=== PATIENT | male | born 1960 | race Caucasian/White ===

== ENCOUNTER → 2018-07-21 07:54 | Outpatient (CLI) | payer OTHER, SELFPAY ==
--- NOTE | 2018-07-21 | DI.US.S_ITS ---
PROCEDURE: US ABDOMEN COMPLETE INDICATIONS: RIGHT UPPER QUADRANT ABDOMINAL PAIN TECHNIQUE: Real-time scanning was performed of the abdominal and retroperitoneal organs, with image documentation. COMPARISON: None. FINDINGS: Liver: Liver is normal in size and homogeneous in echotexture. Gallbladder: No gallstones identified. Normal gallbladder wall. No pericholecystic fluid. Negative sonographic Nayak sign. Biliary ducts: Intrahepatic bile ducts are non-dilated. Extrahepatic bile duct caliber measures 6.7 mm. Normal is 6-7 mm or less in diameter, or 10 mm or less post-cholecystectomy. Pancreas: Not well-seen. Spleen: Spleen is normal in size and homogeneous in echotexture. Kidneys: Kidneys are normal in size and echotexture. Right kidney measures 11.1 cm long; left kidney measures 11.8 cm long. No hydronephrosis or nephrolithiasis. No solid masses. Simple cyst involving the right kidney measuring 2.6 cm. Aorta: Visualized aorta is normal in caliber at less than 3 cm. Iliacs: No well-seen. IVC: Intrahepatic inferior vena cava is patent. Miscellaneous: No free abdominal fluid. IMPRESSION: Increased hepatic echogenicity noted possibly related to hepatic steatosis but other sources of hepatocellular disease cannot be excluded. Recommend clinical correlation. No source for right upper quadrant pain identified. Dictated by: sOmani SAN[place] Interpreted: Carolin Rodriguez MD on 07/21/2018 at 9:13 Approved by: Carolin Rodriguez MD, PhD on 07/21/2018 at 10:59
== END ==
PROVIDERS: PCP Family Medicine; Visit Provider Family Medicine
DX: R10.11 Right upper quadrant pain (principal)
CPT/HCPCS: 76700

== ENCOUNTER 2018-08-26 12:12 | Day surgery (SDC) | payer OTHER, SELFPAY ==
[2018-08-26 12:48] VITALS: BP 131/86; PULSE 88; RESP 16; TEMP 36.5; O2SAT 97; BMI 62.4
[2018-08-26] MEDS: SODIUM CHLORIDE 0.9% 1,000 ML 200 ML IV (12:59)
--- NOTE | 2018-08-26 13:20 | PM.HP.1 ---
History of Present Illness Date Patient Seen: 08/26/18 Time Patient Seen: 13:20 Chief complaint: [id number] SCREENING COLONOSCOPY Narrative: 58-year-old male who presents for colorectal screening. He has had no prior examination for such. On further history today he denies any recent gastrointestinal symptoms. No nausea, vomiting, loss of appetite, unexplained weight loss, abdominal pain, change in bowel habits, diarrhea, constipation, melena, hematochezia, or bright red blood per rectum. Patient History Medical History Anxiety (Acute) Depression (Acute) Gastroesophageal reflux disease (Acute) Hypertension (Acute) No significant past surgical history (Acute) Osteoarthritis (Acute) Family & Social History Family History: Reviewed 08/26/18 by Dante Vale MD Social History: household members spouse Meds Home Medications Medication Instructions Recorded Confirmed Type fluoxetine 20 mg PO DAILY 08/26/18 08/26/18 History hydrochlorothiazide 25 mg PO DAILY 08/26/18 08/26/18 History losartan 50 mg PO DAILY 08/26/18 08/26/18 History naproxen [Naprosyn] 08/26/18 History omeprazole 20 mg PO DAILY 08/26/18 08/26/18 History potassium gluconate 08/26/18 History Allergies Allergy/AdvReac Type Severity Reaction Status Date / Time naproxen [From Aleve] Allergy Intermediate Irritable Verified 08/26/18 12:42 Review of Systems Review of Systems All systems reviewed & are unremarkable except as noted in HPI and below Exam Vital Signs (past 8 hours): - 08/26/18 12:48 Temperature 97.7 F Pulse Rate 88 Respiratory Rate 16 Blood Pressure 131/86 Pulse Oximetry 97 Oxygen Delivery Method Room Air Narrative Exam Narrative: Well-nourished well-developed male in no acute distress. Alert oriented x3. Sclera nonicteric Regular rate and rhythm. No wheezes. Abdomen soft, nondistended, nontender, no masses Extremities show no clubbing or cyanosis Objective Labs Labs: No recent laboratory or radiographic studies review Assessment & Plan Plan: Assessment/Plan Narrative: 58-year-old male requiring colorectal screening by age criteria. Colonoscopy is currently recommended. Technical details of the procedure were explained. Risks, benefits, alternatives were discussed. Risks including but not limited to sedation, aspiration, bleeding, pain, missed lesion, incomplete examination, need for further radiographic studies, colonic perforation, need for major abdominal surgery, and all attendant risks of major surgery were discussed at length. All questions were answered to his satisfaction, and he voiced understanding. Consent was placed on the chart. We will proceed as above.
--- NOTE | 2018-08-26 13:24 | PM.PREOP ---
Pre-operative Note Interval Note History & Physical reviewed/Exam performed by Physician: Yes Changes to H&P: No H&P completed within 30 days and has changed as indicated here:: Patient seen and examined in the preoperative area. History and physical examination dictated and placed on the chart. Obviously no changes in the last 10 min. Proceed with colonoscopy today as planned. ASA Class (for procedural sedation): II
[2018-08-26] MEDS: MIDAZOLAM 5 MG/5 ML VIAL IV (13:33)
[2018-08-26] MEDS: fentaNYL 250 MCG/5 ML INJ IV (13:33)
--- NOTE | 2018-08-26 13:46 | PM.OP.ENDO ---
Operative Date/Time/Diagnoses Date of procedure: 08/26/18 Time of procedure: 13:46 Pre-op diagnosis: Colorectal screening Post-op diagnosis: other (Diverticulosis but otherwise normal colon and rectum) Procedure & Clinicians Study performed: 1. Sedation per surgeon 2. Colonoscopy Same procedure as scheduled: Yes Indications: 58-year-old male requiring colorectal screening by age criteria. Colonoscopy is recommended. Surgeon: Dante Vale Procedure Notes SCOAP/Timeout: Yes Procedure in detail: After obtaining informed consent, the patient was brought to the GI suite and placed in the left lateral decubitus position on the examination table. After placement of appropriate monitors, the patient was given incremental doses of Versed and Fentanyl until an appropriate level of sedation was achieved. A time out was held per SCOAP protocol. A digital rectal examination was performed and did not reveal any masses or obstructing lesions. The colonoscope was gently passed into the patient's anus and the entire colon navigated to the level of the cecum with minimal difficulty. Once in the cecum, the scope was withdrawn being sure to go before and beyond all mucosal folds and prominences and get an excellent examination. The findings are noted above. At the level of the rectal vault, the scope was retroflexed and the internal anal canal was examined. The scope was straightened and air aspirated from the colon. The instrument was removed from the patient's body and the procedure was concluded. The patient was allowed to awaken from sedation without difficulty and taken to the post-anesthesia care unit in good condition. Scope withdrawal time: 7:13 min Sedation minutes: 16 Findings: diverticulosis and other findings (Otherwise normal colon and rectum) Specimen(s): none sent Complications: none Recommendations: Colonscopy in 10 years and High fiber diet Plan for aftercare: 1. Discharge home Follow up: as needed Disposition: PACU
[2018-08-26 13:50] VITALS: BP 114/69; PULSE 70; RESP 15; TEMP 36.5; O2SAT 94
== END 2018-08-26 14:16 | disposition home or self-care (01) ==
PROVIDERS: PCP Family Medicine; Visit Provider Surgery
PROC: 0DJD8ZZ Inspection of Lower Intestinal Tract, Via Natural or Artificial Opening Endoscopic (ICD-10-PCS; CPT 45378; principal; 2018-08-26 14:00)
DX: Z12.11 Encounter for screening for malignant neoplasm of colon (principal); K57.30 Diverticulosis of large intestine without perforation or abscess without bleeding; F41.9 Anxiety disorder, unspecified; I10 Essential (primary) hypertension
CPT/HCPCS: 45378; 99152; J2250; J3010

== ENCOUNTER → 2019-05-26 09:44 | Outpatient (CLI) | payer OTHER, SELFPAY ==
--- NOTE | 2019-05-26 | DI.RAD.S_ITS ---
PROCEDURE: XR ELBOW RT MIN 3V INDICATIONS: BI ELBOW PAIN 3 VIEW TECHNIQUE: 3 views of the elbow were acquired. COMPARISON: None. FINDINGS: Bones: No fractures or dislocations. No suspicious bony lesions. Elbow joint degeneration, with bulky osteophyte formation Soft tissues: No elbow joint effusion. No suspicious soft tissue calcifications. IMPRESSION: Elbow joint degeneration. No fracture. If the patient's pain or other symptoms persist, consider further evaluation with MRI Dictated by: Pietro Kumar M.D. on 05/26/2019 at 10:08 Approved by: Pietro Kumar M.D. on 05/26/2019 at 10:13
--- NOTE | 2019-05-26 | DI.RAD.S_ITS ---
PROCEDURE: XR ELBOW LT MIN 3V INDICATIONS: BI ELBOW PAIN 3 VIEW TECHNIQUE: 3 views of the elbow were acquired. COMPARISON: None. FINDINGS: Bones: No fractures or dislocations. No suspicious bony lesions. Joint degeneration with spurring. Soft tissues: No elbow joint effusion. No suspicious soft tissue calcifications. IMPRESSION: Mild left elbow joint degeneration Dictated by: Pietro Kumar M.D. on 05/26/2019 at 11:07 Approved by: Pietro Kumar M.D. on 05/26/2019 at 11:12
== END ==
PROVIDERS: PCP Student in an Organized Health Care Education/Training Program; Visit Provider Student in an Organized Health Care Education/Training Program
DX: M25.522 Pain in left elbow (principal); M25.521 Pain in right elbow; M19.022 Primary osteoarthritis, left elbow; M19.021 Primary osteoarthritis, right elbow
CPT/HCPCS: 73080

== ENCOUNTER → 2020-09-19 10:25 | Outpatient (CLI) | payer OTHER, SELFPAY ==
--- NOTE | 2020-09-19 | DI.RAD.S_ITS ---
PROCEDURE: XR SHOULDER RT MIN 2V INDICATIONS: RIGHT SHOULDER PAIN TECHNIQUE: 3 views of the shoulder were acquired. COMPARISON: None. FINDINGS: Bones: No fractures or dislocations. No suspicious bony lesions. Visualized ribs appear intact. Soft tissues: No suspicious soft tissue calcifications. IMPRESSION: [id number] AC joint osteoarthritis, without trauma. Dictated by: Patrick Watkins M.D. on 09/19/2020 at 11:00 Approved by: Patrick Watkins M.D. on 09/19/2020 at 11:00
== END ==
PROVIDERS: PCP Internal Medicine; Referring Provider Internal Medicine; Visit Provider Internal Medicine
DX: S49.91XA Unspecified injury of right shoulder and upper arm, initial encounter (principal); M25.511 Pain in right shoulder; M19.011 Primary osteoarthritis, right shoulder; X58.XXXA Exposure to other specified factors, initial encounter
CPT/HCPCS: 73030

== ENCOUNTER → 2023-10-08 12:08 | Outpatient (CLI) | payer OTHER, SELFPAY ==
--- NOTE | 2023-10-08 12:15 | DI.RAD.S_ITS ---
PROCEDURE: XR KNEE LT 3V INDICATIONS: polyarthralgia TECHNIQUE: 3 views of the knee were acquired. COMPARISON: None. FINDINGS: Bones: No fractures or dislocations. No patellar subluxation. Mild tricompartmental osteoarthritis is seen with joint space narrowing and subchondral sclerosis. No suspicious bony lesions. Soft tissues: No joint effusion. No suspicious soft tissue calcifications. IMPRESSION: No left knee fracture or dislocation. Mild tricompartmental osteoarthritis. No joint effusion. Dictated by: Slava Akins M.D. on 10/08/2023 at 15:53 Approved by: Slava Akins M.D. on 10/08/2023 at 15:53
--- NOTE | 2023-10-08 12:16 | DI.RAD.S_ITS ---
PROCEDURE: XR KNEE RT 3V INDICATIONS: polyarthralgia TECHNIQUE: 3 views of the knee were acquired. COMPARISON: None. FINDINGS: Bones: No fractures or dislocations. Mild tricompartmental osteoarthritis is seen more notably in medial femoral tibial compartment. No suspicious bony lesions. Soft tissues: Small suprapatellar joint effusion is seen. No suspicious soft tissue calcifications. IMPRESSION: No right knee fracture or dislocation. Mild tricompartmental osteoarthritis and small joint effusion. Dictated by: Slava Akins M.D. on 10/08/2023 at 15:53 Approved by: Slava Akins M.D. on 10/08/2023 at 15:59
--- NOTE | 2023-10-08 12:16 | DI.RAD.S_ITS ---
PROCEDURE: XR HAND LT MIN 3V INDICATIONS: polyarthralgia TECHNIQUE: 3 views of the hand(s) acquired. COMPARISON: None. FINDINGS: Bones: No fractures or dislocations. Carpal bones are normally aligned. Osteoarthritic changes are noted throughout left hand and wrist joints. Subtle radiolucency involving ulnar aspect of 3rd metacarpal head and adjacent 3rd proximal phalangeal base is seen. No suspicious bony lesions. Soft tissues: No suspicious soft tissue calcifications. IMPRESSION: No fracture or dislocation. Mild left hand and wrist joint osteoarthritis. Radiolucency involving ulnar aspect of 3rd MCP joint, which may represent subtle erosion versus subcortical cysts. No gross soft tissue abnormalities. Dictated by: Slava Akins M.D. on 10/08/2023 at 16:15 Approved by: Slava Akins M.D. on 10/08/2023 at 16:16
--- NOTE | 2023-10-08 12:16 | DI.RAD.S_ITS ---
PROCEDURE: XR SHOULDER RT MIN 2V INDICATIONS: polyarthralgia TECHNIQUE: 3 views of the shoulder were acquired. COMPARISON: [facility], CR, XR SHOULDER RT MIN 2V, 09/19/2020, 10:31. FINDINGS: Bones: No fractures or dislocations. Moderate acromioclavicular joint space narrowing and juxta-articular osteophytosis. Coracoclavicular interval is maintained. Normal glenohumeral alignment. No suspicious bony lesions. Visualized ribs appear intact. Soft tissues: No suspicious soft tissue calcifications. Visualized right lung is clear. IMPRESSION: 1. No acute bony abnormality. 2. Moderate right acromioclavicular joint osteoarthritis. Dictated by: Mango Barbosa M.D. on 10/08/2023 at 17:09 Approved by: Mango Barbosa M.D. on 10/08/2023 at 17:10
--- NOTE | 2023-10-08 12:16 | DI.RAD.S_ITS ---
PROCEDURE: XR HIP W PEL IF DONE RT 2V INDICATIONS: polyarthralgia TECHNIQUE: AP pelvis with lateral view(s) of the right hip(s). COMPARISON: None. FINDINGS: Bones: No fractures or dislocations. [id number] bilateral hip joint osteoarthritic changes are seen with superior joint space narrowing, subchondral sclerosis and small marginal osteophyte formation. No evidence of avascular necrosis of femoral head. Pelvic ring appears intact. No suspicious bony lesions. Soft tissues: The visualized bowel gas pattern is normal. No suspicious soft tissue calcifications. IMPRESSION: [id number] bilateral hip joint osteoarthritis. No pelvic or hip fracture. No evidence of avascular necrosis. Dictated by: Slava Akins M.D. on 10/08/2023 at 16:00 Approved by: Slava Akins M.D. on 10/08/2023 at 16:00
--- NOTE | 2023-10-08 12:16 | DI.RAD.S_ITS ---
PROCEDURE: XR SHOULDER LT MIN 2V INDICATIONS: polyarthralgia TECHNIQUE: 3 views of the shoulder were acquired. COMPARISON: [facility], CR, XR SHOULDER RT MIN 2V, 09/19/2020, 10:31. FINDINGS: Bones: No fractures or dislocations. Moderate acromioclavicular joint space narrowing and juxta-articular osteophytosis. Normal glenohumeral alignment. Coracoclavicular interval is maintained. No suspicious bony lesions. Visualized ribs appear intact. Soft tissues: No suspicious soft tissue calcifications. Visualized left lung is clear. IMPRESSION: 1. No acute bony abnormality. 2. Moderate acromioclavicular joint osteoarthritis. Dictated by: Mango Barbosa M.D. on 10/08/2023 at 14:34 Approved by: Mango Barbosa M.D. on 10/08/2023 at 14:35
== END ==
PROVIDERS: PCP Internal Medicine; Referring Provider Student in an Organized Health Care Education/Training Program; Visit Provider Student in an Organized Health Care Education/Training Program
DX: M19.012 Primary osteoarthritis, left shoulder (principal); M19.011 Primary osteoarthritis, right shoulder; M17.0 Bilateral primary osteoarthritis of knee; M16.0 Bilateral primary osteoarthritis of hip; M19.042 Primary osteoarthritis, left hand; M19.032 Primary osteoarthritis, left wrist; M25.461 Effusion, right knee; M25.50 Pain in unspecified joint
CPT/HCPCS: 73030; 73130; 73502; 73562